=== PATIENT | male | born 1965 | race Caucasian/White ===

== ENCOUNTER 2021-09-06 19:18 | Emergency (ER) | payer OTHER ==
[2021-09-06 20:42] LABS: BASOPHIL 0.5 % (0-2); EOSINOPHIL 1.3 % (0-5); HCT 40.2 % (42.0-52.0); LYMPHOCYTE 21.2 % (15-48); MCH 30.8 pg (25.0-31.0); MCHC 34.8 g/dL (32.0-36.0); MCV 88.4 fL (78.0-100.0); MONOCYTE 8.6 % (0-12); MPV 10.1 fL (6.0-9.5); NEUTROPHIL 67.9 % (41-80); NRBC 0; PLT 228 K/uL (150-400); RBC 4.55 M/uL (4.70-6.00); RDW 11.6 % (11.5-14.0); WBC 5.9 K/uL (4.0-10.5)
[2021-09-06 20:56] LABS: ALBUMIN 3.7 g/dL (3.4-5.0); BILIRUBIN - TOTAL 0.2 mg/dL (0.2-1.0); BUN/CREAT RATIO (CALC) 13.6 RATIO; CREATININE 0.88 mg/dL (0.67-1.17); GLOBULIN (CALCULATION) 3.5 g/dL; POTASSIUM 3.5 mmol/L (3.5-5.1); TOTAL PROTEIN 7.2 g/dL (6.4-8.2)
[2021-09-06 22:07] LABS: CORONAVIRUS 2019 SARS-COV-2 NEGATIVE (NEGATIVE); INFLUENZA A NAA NEGATIVE (NEGATIVE)
== END 2021-09-06 22:46 | disposition home or self-care (01) ==
LOC: FER 19:18
PROVIDERS: Internal Medicine
DX: I10 Essential (primary) hypertension (principal); E78.5 Hyperlipidemia, unspecified; Z20.822 Contact with and (suspected) exposure to COVID-19; Z79.899 Other long term (current) drug therapy
CPT/HCPCS: 36415; 71045; 80053; 84145; 84439; 84443; 84484; 85025; 93005; U0002